=== PATIENT | female | born 1995 | race Caucasian/White ===

== ENCOUNTER 2017-05-27 14:31 | Emergency (ER) | payer BC ==
[~2017-05-27] VITALS: Ht 165.1 cm; Wt 57.6 kg
[2017-05-27 14:39] VITALS: TEMP 36.6; Ht 165.1 cm; Wt 57.6 kg
--- NOTE | 2017-05-27 15:57 | DIAGNOSTIC IMAGING REPORT ---
CHEST ONE VIEW PORTABLE CLINICAL HISTORY: syncope COMPARISON STUDY: No previous studies for comparison. FINDINGS: The cardiac and mediastinal contours are normal. There is no evidence of focal pulmonary consolidation. There is no evidence of failure. No pleural effusions are visualized.[ IMPRESSION: No active disease in the chest. Electronically signed by: Dannie Haque M.D. 05/27/2017 3:56 PM Dictated Date/Time: 05/27/2017 3:56 PM
[2017-05-27 16:25] LABS: BASO % 0.3 %; BASO ABS # 0.02 K/uL (0-0.2); EOS % 0.1 %; EOS ABS # 0.01 K/uL (0-0.5); HEMATOCRIT 36.9 % (37-47); HEMOGLOBIN 13.2 g/dL (12.0-16.0); LYMPH ABS # 1.54 K/uL (1.2-3.4); MEAN CELL VOLUME 87.4 fL (80-100); MEAN CORPUSCULAR HEMOGLOBIN 31.3 pg (25-34); MEAN CORPUSCULAR HGB CONC 35.8 g/dl (32-36); MEAN PLATELET VOLUME 10.1 fL (7.4-10.4); MONO % 6.7 %; MONO ABS # 0.52 K/uL (0.11-0.59); NEUT % 72.9 %; NEUT ABS # 5.62 K/uL (1.4-6.5); PLATELET COUNT 277 K/uL (130-400); RED CELL DISTRIBUTION WIDTH CV 12.2 % (11.5-14.5); RED CELL DISTRIBUTION WIDTH SD 39.1 fL (36.4-46.3); WHITE BLOOD COUNT 7.71 K/uL (4.8-10.8)
[2017-05-27] MEDS ORDERED: BCPILLS PO (16:45)
[2017-05-27 17:09] LABS: BLOOD UREA NITROGEN 10 mg/dl (7-18); CALCIUM 9.5 mg/dl (8.5-10.1); CARBON DIOXIDE 23 mmol/L (21-32); CREATININE 0.58 mg/dl (0.60-1.20); GLUCOSE 80 mg/dl (70-99); POTASSIUM 3.6 mmol/L (3.5-5.1); SODIUM 137 mmol/L (136-145)
--- NOTE | 2017-05-27 17:25 | EMERGENCY ROOM VISIT NOTE ---
History Report prepared by Shane: Fredy Chung Under the Supervision of: Aliya BlankO. First contact with patient: 15:33 Chief Complaint: HEAD INJURY (MINOR) Stated Complaint: FELL HIT HEAD;HEADACHE AND NAUSEA History of Present Illness The patient is a 21 year old female who presents to the Emergency Room with complaints of a syncopal episode that occurred yesterday. She states that she does not know why she passed out. The patient says that she was at the plasma donation center, filling out her questionnaire before donation, and suddenly became dizzy and hot, and passed out. She states that she fell to the ground from a standing position, and thinks she hit her head, as she has had pain on the back of the right side of her head ever since then. She adds that she has been nauseous since last night. The patient denies any chest pain, shortness of breath, vomiting, diarrhea, or pain or burning with urination. She adds that she takes control. Patient denies swelling of calves, recent trips, history of immobilization or recent surgery, prior history of DVT, hemoptysis, history of malignancy, or history of smoking. Also denies any history of diabetes, high blood pressure, high cholesterol, CAD or sudden in family at a young age. . Source of History: patient Onset: Yesterday Position: other (global - syncope) Quality: other (at plasma donation center) Timing: other (episode) Associated Symptoms: + LOC, + headache, + nausea, No chest pain, No SOB, No vomiting, No diarrhea, No urinary symptoms Note: Associated symptoms: Got dizzy and hot before episode. Denies calf swelling. Review of Systems See HPI for pertinent positives & negatives. A total of 10 systems reviewed and were otherwise negative. Past Medical & Surgical Medical Problems: (1) No chronic diseases present Family History No pertinent family history Social History Smoking Status: Never Smoker Smokeless Tobacco Use: No Housing Status: lives with roommate Occupation Status: student Current/Historical Medications Scheduled Control Pills ( Control Pills), 1 TAB PO DAILY Allergies Coded Allergies: No Known Allergies (Unverified , 05/27/17) Physical Exam Vital Signs Date Time Temp Pulse Resp B/P (MAP) Pulse Ox O2 Delivery O2 Flow Rate FiO2 05/27/17 16:23 86 109/65 100 Room Air 05/27/17 16:23 100 05/27/17 14:39 36.6 92 18 133/73 95 Room Air Physical Exam GENERAL: Sitting up in bed, alert, well appearing, well nourished, no distress, non-toxic EYE EXAM: normal conjunctiva. PERRL and EOM's intact. HEAD: Normocephalic atraumatic. Tenderness at base of skull. OROPHARYNX: no exudate, no erythema, lips, buccal mucosa, and tongue normal and mucous membranes are moist NECK: supple, no nuchal rigidity, no adenopathy, non-tender LUNGS: Clear to auscultation. Normal chest wall mechanics HEART: no murmurs, S1 normal and S2 normal ABDOMEN: abdomen soft, non-tender, normo-active bowel sounds, no masses, no rebound or guarding. BACK: Back is symmetrical on inspection and there is no deformity, no midline tenderness, no CVA tenderness. SKIN: no rashes and no bruising UPPER EXTREMITIES: upper extremities are grossly normal. LOWER EXTREMITIES: No pitting edema. NEURO EXAM: Normal sensorium, cranial nerves II-XII intact, normal speech, no weakness of arms, no weakness of legs. No drift. Finger to nose intact. Gross sensation intact. Ambulates without issues. Medical Decision & Procedures ER Provider Diagnostic Interpretation: X-ray results as stated below per my review and the radiologist's interpretation : CHEST ONE VIEW PORTABLE CLINICAL HISTORY: syncope COMPARISON STUDY: No previous studies for comparison. FINDINGS: The cardiac and mediastinal contours are normal. There is no evidence of focal pulmonary consolidation. There is no evidence of failure. No pleural effusions are visualized.[ IMPRESSION: No active disease in the chest. Electronically signed by: Dannie Haque M.D. 05/27/2017 3:56 PM Dictated Date/Time: 05/27/2017 3:56 PM Laboratory Results 05/27/17 16:00 Red Blood Count 4.22, Mean Corpuscular Volume 87.4, Mean Corpuscular Hemoglobin 31.3, Mean Corpuscular Hemoglobin Concent 35.8, Mean Platelet Volume 10.1, Neutrophils (%) (Auto) 72.9, Lymphocytes (%) (Auto) 20.0, Monocytes (%) (Auto) 6.7, Eosinophils (%) (Auto) 0.1, Basophils (%) (Auto) 0.3, Neutrophils # (Auto) 5.62, Lymphocytes # (Auto) 1.54, Monocytes # (Auto) 0.52, Eosinophils # (Auto) 0.01, Basophils # (Auto) 0.02 05/27/17 16:00 Test 05/27/17 16:00 05/27/17 16:42 White Blood Count 7.71 K/uL (4.8-10.8) Red Blood Count 4.22 M/uL (4.2-5.4) Hemoglobin 13.2 g/dL (12.0-16.0) Hematocrit 36.9 % (37-47) Mean Corpuscular Volume 87.4 fL (80-100) Mean Corpuscular Hemoglobin 31.3 pg (25-34) Mean Corpuscular Hemoglobin Concent 35.8 g/dl (32-36) Platelet Count 277 K/uL (130-400) Mean Platelet Volume 10.1 fL (7.4-10.4) Neutrophils (%) (Auto) 72.9 % Lymphocytes (%) (Auto) 20.0 % Monocytes (%) (Auto) 6.7 % Eosinophils (%) (Auto) 0.1 % Basophils (%) (Auto) 0.3 % Neutrophils # (Auto) 5.62 K/uL (1.4-6.5) Lymphocytes # (Auto) 1.54 K/uL (1.2-3.4) Monocytes # (Auto) 0.52 K/uL (0.11-0.59) Eosinophils # (Auto) 0.01 K/uL (0-0.5) Basophils # (Auto) 0.02 K/uL (0-0.2) RDW Standard Deviation 39.1 fL (36.4-46.3) RDW Coefficient of Variation 12.2 % (11.5-14.5) Immature Granulocyte % (Auto) 0.0 % Immature Granulocyte # (Auto) 0.00 K/uL (0.00-0.02) Anion Gap 10.0 mmol/L (3-11) Est Creatinine Clear Calc Drug Dose 138.1 ml/min Estimated GFR () > 150.0 Estimated GFR (Non- 131.8 BUN/Creatinine Ratio 17.4 (10-20) Calcium Level 9.5 mg/dl (8.5-10.1) Troponin I < 0.015 ng/ml (0-0.045) Human Chorionic Gonadotropin, Qual NEG (NEG) Bedside D-Dimer 242 ng/mlFEU (0-450) Laboratory results per my review. ECG Indication: nausea Rate (beats per minute): 65 Rhythm: sinus rhythm Findings: no ectopy, other (normal axis, normal intervals) ED Course ED COURSE: Vital signs were reviewed and showed hypertensive situational vitals. The patients medical record was reviewed The above diagnostic studies were performed and reviewed. ED treatments and interventions as stated above. 1534: The patient was evaluated in room B10. A complete history and physical examination was performed. 1552: I reevaluated the patient and she declines a CT. I explained the risk and benefits. 1613: I reevaluated the patient and she is doing well. 1700: I reevaluated and updated the patient. 1720: Upon reevaluation, the patient is resting comfortably.I discussed my findings with the patient and she understands and agrees with the treatment plan. Based on the patients age, coexisting illnesses, exam and lab findings the decision to treat as an outpatient was made. The patient remained stable while under my care. The patient appeared well at the time of discharge. Medical Decision Differential diagnosis includes etiologies such as vasovagal event, infection, hypoglycemia, electrolyte abnormalities, cardiac sources, intracerebral event, toxicologic, neurologic, as well as others were entertained. Patient is a 21-year-old female who presents to ER for a suitable episode along with a headache. Based on her history of present illness and presentation I believe this is consistent with a vasovagal episode. EKG was unremarkable. CBC all BMP was benign. Troponin and d-dimer were negative. Chest x-ray unremarkable. Recommended CT head for her headache but she declined. I do feel this is reasonable as this occurred yesterday and if she truly had a bleed would worsened by now. She is neurologically intact. She was updated bedside and discharged with concussion instructed to follow up with S in 24-48 hours. Discussed with Pt concerning signs and symptoms to watch out for. Pt was instructed to follow up with their PCP and discussed with the patient their option to return to the ED at anytime for persistent or worsening symptoms. The appropriate anticipatory guidance and out-patient management, including indications for return to the emergency department, were explained at length to the patient and understood. Medication Reconcilliation Current Medication List: was personally reviewed by me Blood Pressure Screening Patient's blood pressure: Elevated blood pressure Blood pressure disposition: Elevated BP felt to be situational Impression Primary Impression: Vasovagal syncope Additional Impression: Concussion Scribe Attestation The scribe's documentation has been prepared under my direction and personally reviewed by me in its entirety. I confirm that the note above accurately reflects all work, treatment, procedures, and medical decision making performed by me. Departure Information Dispostion Home / Self-Care Referrals No Doctor, Assigned (PCP) Patient Instructions Concussion Dc, ED Syncope Vasovagal, My [facility] Additional Instructions Please follow up with your primary care doctor with in the next 24 hours. Any worsening of your symptoms, please return to the ED immediately. This includes any fevers greater than 100.4, worsening pain, chest pain, shortness breath, persistent nausea, vomiting, unable to eat or drink, or any other concerning signs or symptoms from your standpoint. Please take Tylenol or Motrin as needed for pain. No return to any physical activity until cleared by PCP. Problem Qualifiers Additional Impression: Concussion Encounter type: initial encounter Loss of consciousness presence/duration: without LOC Qualified Codes: S06.0X0A - Concussion without loss of consciousness, initial encounter
[2017-05-27 18:10] VITALS: BP 120/75; PULSE 82; O2SAT 100
== END 2017-05-27 18:17 | disposition home or self-care (01) ==
LOC: C.EDB 14:35
DX: S06.0X0A Concussion without loss of consciousness, initial encounter (principal); W18.30XA Fall on same level, unspecified, initial encounter; R55 Syncope and collapse; Z79.3 Long term (current) use of hormonal contraceptives; R03.0 Elevated blood-pressure reading, without diagnosis of hypertension